=== PATIENT | female | born 1995 | race African-American/Black ===

== ENCOUNTER → 2021-03-01 | Outpatient (CLI) | payer BC, OTHER | LOC: ULTRA 14:22 | PROVIDERS: ATTEND Surgery | DX: M79.89 Other specified soft tissue disorders (principal) ==

== ENCOUNTER → 2021-09-06 | Outpatient (CLI) | payer OTHER | LOC: RAD 13:41 | PROVIDERS: ATTEND Family Medicine | DX: M54.50 Low back pain, unspecified (principal) ==